=== PATIENT | male | born 1970 | race Caucasian/White ===

== ENCOUNTER 2017-04-21 16:54 | Emergency (ER) | payer OTHER ==
[~2017-04-21] VITALS: Ht 185.4 cm; Wt 87.7 kg
[~2017-04-21 16:54] MED LIST: HYDR-4150 PO; clindamycin PO
[2017-04-21 17:07] VITALS: BP 151/98; PULSE 102; RESP 20; O2SAT 97
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
[2017-04-21] MEDS ORDERED: TdaP Vaccine 0.5 mL Inj IM ONE (17:20)
[2017-04-21] MEDS ORDERED: AMOX-366 PO (19:05)
--- NOTE | 2017-04-21 19:20 | DRSVH ---
PROCEDURE: X-RAY LEFT HAND, MINIMUM THREE VIEWS ([id number]) INDICATIONS: palm injury, FB present? TECHNIQUE: 3 views of the hand(s) acquired. COMPARISON: [facility], , HAND MIN 3VW (LT), 07/24/2013, 13:16. FINDINGS: Bones: No fractures or dislocations. Carpal bones are normally aligned. No suspicious bony lesions . Soft tissues: No suspicious soft tissue calcifications. IMPRESSION: No radiopaque foreign body. No acute fracture. No osseous lesion. If clinical suspicion and/or symptoms persist, further assessment with repeat plainfilms, or advanced imaging (e.g., CT, MR I, or bone scan) may be helpful for further assessment. Dictated by: Carrillo Villegas M.D. on 04/21/2017 at 19:18 Approved by: Carrillo Villegas M.D. on 04/21/2017 at 19:19
[2017-04-21 19:31] VITALS: BP 151/98; PULSE 102; RESP 16; O2SAT 97
== END 2017-04-21 19:31 | disposition home or self-care (01) ==
LOC: SED 16:54
DX: S61.432A Puncture wound without foreign body of left hand, initial encounter (principal); M79.642 Pain in left hand; W27.0XXA Contact with workbench tool, initial encounter; Y93.89 Activity, other specified; Y92.9 Unspecified place or not applicable; Y99.8 Other external cause status; I10 Essential (primary) hypertension; F17.200 Nicotine dependence, unspecified, uncomplicated